=== PATIENT | female | born 1975 | race Hispanic/Latino ===

== ENCOUNTER → 2017-05-03 | Outpatient (CLI) | payer OTHER | LOC: M RAD 16:15 | DX: R91.1 Solitary pulmonary nodule (principal) | CPT/HCPCS: 71250 ==

== ENCOUNTER → 2017-08-02 | Outpatient (CLI) | payer OTHER | LOC: M RAD 10:07 | DX: Z12.31 Encounter for screening mammogram for malignant neoplasm of breast (principal) ==

== ENCOUNTER → 2017-08-21 | Outpatient (CLI) | payer OTHER | LOC: M RAD 10:09 | DX: Z12.31 Encounter for screening mammogram for malignant neoplasm of breast (principal) ==

== ENCOUNTER → 2017-12-12 | Outpatient (CLI) | payer OTHER | LOC: M RAD 16:29 | DX: J32.4 Chronic pansinusitis (principal); J31.0 Chronic rhinitis; J34.2 Deviated nasal septum | CPT/HCPCS: 70486 ==

== ENCOUNTER → 2018-05-13 | Outpatient (CLI) | payer OTHER ==
[~2018-05-13] MED LIST: PROHANCE 279.3MG/ML 15ML VIAL (A9576) As Ordered ONE; PROHANCE 279.3MG/ML 5ML VIAL (A9576) As Ordered ONE
--- NOTE | 2018-05-13 19:47 | REP ---
MRI BILATERAL BREASTS WITH AND WITHOUT CONTRAST: HISTORY: Family history of breast cancer in paternal aunt. Kelli Gutiérrez lifetime risk of breast cancer 20.3%. Multiple sequences obtained in the axial, coronal and sagittal planes prior to and following the intravenous administration of 20 mL ProHance. Images are reviews in the [employer] software including CAD images, color overlay and subtracted images. Mild scattered fibroglandular tissue is seen bilaterally. Subcentimeter cyst is seen in the right retroareolar region. No suspicious enhancing mass is seen. No morphologic abnormality is seen. There are normal sized axillary lymph nodes. IMPRESSION: ACR 2 benign. No suspicious mass or morphologic abnormality. Followup screening breast MRI recommended annually. Electronically Signed by Lenin Perkins MD 05/14/2018 08:30 P
== END ==
LOC: M RAD 12:51
PROVIDERS: ATTEND Family Medicine
DX: R92.8 Other abnormal and inconclusive findings on diagnostic imaging of breast (principal); D24.1 Benign neoplasm of right breast
CPT/HCPCS: A9576; C8908

== ENCOUNTER → 2018-05-16 | Outpatient (CLI) | payer OTHER ==
--- NOTE | 2018-05-16 10:04 | REP ---
CT chest without contrast: History: Followup incidental 6 cm cystic lesion inferior margin of the spleen. Comparison chest CT study May 03, 2017. CT findings: The previously noted 6 cm low density splenic cyst has resolved on today's CT images. No cystic lesion is visible. This may have been a traumatic finding that has healed. In any event it is no longer present. No hepatic lesion is seen. No adrenal lesion is observed. The visualized upper abdominal structures are unremarkable. No hilar or mediastinal mass or adenopathy is observed. No pleural or pericardial effusions seen. No pulmonary nodule is appreciated. No mass or infiltrate is seen. Bone window settings demonstrate subcortical cyst formation in the humeral head on the right. No acute bony abnormalities seen. Impression: Previously noted splenic cyst has resolved. No active cardiopulmonary disease. Electronically Signed by Jared Dong MD 05/16/2018 10:38 A
== END ==
LOC: M RAD 08:10
PROVIDERS: ATTEND Family Medicine
DX: M85.621 Other cyst of bone, right upper arm (principal)

== ENCOUNTER → 2019-01-03 | Outpatient (CLI) | payer OTHER ==
--- NOTE | 2019-01-05 09:10 | REPMRS ---
Patient History The patient states she has not had a clinical breast exam in over a year. Family history of breast cancer under age 50 in paternal aunt. Taking hormonal contraceptives for 1 year. Taking unspecified hormones for 4 months. Digital Mammo Screening Bilat: January 03, 2019 - Exam #: [id number] Bilateral CC and MLO view(s) were taken. Technologist: Ruth Elizabeth, Technologist Prior study comparison: May 13, 2018, bilateral breast MRI performed at [facility]. August 21, 2017, bilateral digital mammo screening bilat performed at [facility]. 2017, bilateral digital woman screen mammo, [facility]. FINDINGS: The breast tissue is heterogeneously dense. This may lower the sensitivity of mammography. There has been no change in the appearance of the mammogram from the prior studies. There is a moderate amount of residual fibroglandular tissue which is fairly symmetric. There is no interval development of dominant mass, areas of architectural distortion, or clustered microcalcification typical of malignancy. Assessment: BI-RADS/ACR category 1 mammogram. Negative Mammogram. Recommendation Routine screening mammogram in 1 year (for women over age 40). This mammogram was interpreted with the aid of an FDA-approved computer-aided dectection system. THE LIFETIME RISK OF BREAST CANCER IS 20.1%, THEREFORE SUPPLEMENTAL SCREENING MRI OF THE BREASTS IS RECOMMENDED IN 6 MONTHS. Electronically Signed By: Lenin Perkins MD 01/05/19 0910
== END ==
LOC: M RAD 11:10
PROVIDERS: ATTEND Family Medicine
DX: Z12.31 Encounter for screening mammogram for malignant neoplasm of breast (principal)

== ENCOUNTER → 2019-05-02 | Outpatient (CLI) | payer OTHER | LOC: M SLEEP 20:00 | PROVIDERS: ATTEND Nurse Practitioner Adult Health | DX: G47.30 Sleep apnea, unspecified (principal) ==

== ENCOUNTER → 2019-08-11 | Outpatient (CLI) | payer OTHER ==
[~2019-08-11] MED LIST changes: +METHACHOLINE KIT (J7674) INH ONE; -PROHANCE 279.3MG/ML 15ML VIAL (A9576) As Ordered ONE; -PROHANCE 279.3MG/ML 5ML VIAL (A9576) As Ordered ONE
--- NOTE | 2019-08-11 15:01 | PFTRPT ---
Height: 67.00 Inches Weight: 230.00 Lbs BSA: 2.15 Diagnosis: R06.02 DATE OF STUDY: 08/11/2019 ORDERED BY: ASTER Estrada INTERPRETATION: Study of excellent technical quality. Some mild difficulty with the required maneuvers is identified. Under protocol, methacholine was administered. At a dose of 10 mg or 63.875 CDUs, a 20% decline in the FEV1 was noted. PC of 9.47 is in the indeterminate category. Flow rates did return to baseline post bronchodilator administration. IMPRESSION: Indeterminate methacholine challenge. Please correlate clinically. MTDD
== END ==
LOC: M CARPUL 13:59
PROVIDERS: ATTEND Nurse Practitioner Adult Health
DX: R06.02 Shortness of breath (principal)
CPT/HCPCS: 94070; J7674

== ENCOUNTER → 2019-09-23 | Outpatient (CLI) | payer OTHER ==
--- NOTE | 2019-09-23 23:53 | REP ---
REASON FOR EXAM: Followup. All priors reviewed, latest 05/16/2018. The lack of intravenous contrast decreases the sensitivity of the exam. There is no mediastinal or hilar adenopathy. There are no pleural or pericardial effusions. The imaged upper abdomen and imaged osseous structures are unchanged. Evaluation of the lung alatorre shows no significant changes from the prior exam. There are no new abnormal nodules, masses, or opacities. IMPRESSION: Stable CT findings. There is no evidence of acute disease. Electronically Signed by Gabino Ahumada DO 09/24/2019 08:09 A
== END ==
LOC: M RAD 13:44
PROVIDERS: ATTEND Nurse Practitioner Adult Health
DX: R91.8 Other nonspecific abnormal finding of lung field (principal)